=== PATIENT | male | born 1945 | race Two or more races ===

== ENCOUNTER 2018-11-26 09:40 | Emergency (ER) | payer OTHER, MEDICAID ==
[~2018-11-26] VITALS: Ht 167.6 cm; Wt 73.5 kg
[2018-11-26] MEDS ORDERED: SODIUM CHLORIDE 0.9% 1,000 ML IV ONE (10:49)
[2018-11-26] MEDS ORDERED: SODIUM CHLORIDE 0.9% 500 ML IVB ONE (10:49)
[2018-11-26 11:40] LABS: Eosinophils # (auto) 0 uL; Eosinophils % (auto) 0.2 % (0.0-7.0); Hemoglobin 13.6 g/dL (13.5-17.5); Nucleated Red Blood Cells % 0.1 %; White Blood Cell 11.2 10^3/uL (4.4-10.8)
[2018-11-26 11:41] LABS: Basophils # (auto) 0 uL; Basophils % (auto) 0.3 % (0.0-2.0); Hematocrit 40.4 % (41.0-53.0); Lymphocytes # (auto) 0.9 uL; Lymphocytes % (auto) 8.4 % (10.0-50.0); Mean Corpuscular Hemoglobin 33.9 pg (28.0-32.0); Mean Corpuscular Hgb Conc. 33.6 g/dL (32.0-36.0); Mean Corpuscular Volume 100.7 fL (80.0-100.0); Monocytes # (auto) 1.1 uL; Monocytes % (auto) 9.4 % (0.0-12.0); Neutrophils # (auto) 9.2 uL; Neutrophils % (auto) 81.7 % (37.0-80.0); Platelet Count (auto) 143 10^3/uL (140-450); Red Blood Cells 4.01 10^6/uL (4.5-5.90); Red Cell Distribution Width 13.5 % (11.8-14.3)
[2018-11-26 12:00] LABS: Albumin 3.4 g/dL (3.4-5.0); Anion Gap 6 (5-15); Blood Urea Nitrogen 25 mg/dL (7-18); Calcium 8.4 mg/dL (8.5-10.1); Carbon Dioxide 26 mmol/L (21-32); Chloride 106 mmol/L (98-107); Glucose 108 mg/dL (74-106); Potassium 4.4 mmol/L (3.5-5.1); Sodium 138 mmol/L (136-145)
[2018-11-26 12:05] LABS: Alanine Aminotransferase 15 U/L (16-61); Alkaline Phosphatase 52 U/L (45-117); Aspartate Aminotransferase 17 U/L (15-37); BUN/Creatinine Ratio 18.8; Bilirubin, Total 4.3 mg/dL (0.2-1.0); GFR African American 68 mL/min; GFR Non-African American 56 mL/min; Total Protein 7.4 g/dL (6.4-8.2)
[2018-11-26 14:40] VITALS: BP 120/62
[2018-11-26 15:28] LABS: Urine Bacteria NONE SEEN /hpf (None Seen); Urine Blood Negative /uL (Negative); Urine Hyaline Cast FEW /lpf (0 - 2); Urine Specific Gravity 1.011 (1.001-1.035); Urine WBC <1 /hpf (0 - 3)
== END 2018-11-26 16:06 | disposition home or self-care (01) ==
LOC: ER 09:40 → EDBD 09:40 → ER 16:05
DX: R55 Syncope and collapse (principal); T88.1XXA Other complications following immunization, not elsewhere classified, initial encounter; I48.91 Unspecified atrial fibrillation; K21.9 Gastro-esophageal reflux disease without esophagitis; I10 Essential (primary) hypertension
CPT/HCPCS: 36415; 70450; 71046; 80053; 81001; 83735; 84484; 85025; 93005; 94761; 96360; 96361; 99284; J7030; J7040

== ENCOUNTER 2020-03-02 21:01 | Inpatient (IN) | payer OTHER, MEDICAID ==
[~2020-03-02] VITALS: Ht 172.7 cm; Wt 74.6 kg
[2020-03-02 23:03] LABS: Basophils # (auto) 0 10 ^3/uL (0-0.2); Basophils % (auto) 0.4 % (0.0-2.0); Eosinophils # (auto) 0 10 ^3/uL (0-0.8); Hematocrit 46.3 % (41.0-53.0); Hemoglobin 15.7 g/dL (13.5-17.5); Lymphocytes # (auto) 0.8 10 ^3/uL (0.4-5.4); Lymphocytes % (auto) 14.1 % (10.0-50.0); Mean Corpuscular Hemoglobin 34.2 pg (28.0-32.0); Mean Corpuscular Volume 100.8 fL (80.0-100.0); Monocytes # (auto) 0.4 10 ^3/uL (0-1.3); Monocytes % (auto) 6.7 % (0.0-12.0); Neutrophils # (auto) 4.3 10 ^3/uL (1.6-8.6); Neutrophils % (auto) 78.8 % (37.0-80.0); Nucleated Red Blood Cells % 0.1 %; Platelet Count (auto) 135 10^3/uL (140-450); Red Blood Cells 4.59 10^6/uL (4.5-5.90); Red Cell Distribution Width 14.1 % (11.8-14.3); White Blood Cell 5.5 10^3/uL (4.4-10.8)
[2020-03-02 23:26] LABS: Chloride 102 mmol/L (98-107); Potassium 4.6 mmol/L (3.5-5.1); Sodium 132 mmol/L (136-145)
[2020-03-02 23:41] LABS: Alanine Aminotransferase 31 U/L (16-61); Alkaline Phosphatase 46 U/L (45-117); Anion Gap 8 (5-15); Aspartate Aminotransferase 60 U/L (15-37); BUN/Creatinine Ratio 24.8; Bilirubin, Total 1.3 mg/dL (0.2-1.0); Blood Urea Nitrogen 32 mg/dL (7-18); Calcium 7.6 mg/dL (8.5-10.1); Carbon Dioxide 22 mmol/L (21-32); GFR African American 70 mL/min; GFR Non-African American 58 mL/min; Glucose 90 mg/dL (74-106); Magnesium 2.6 mg/dL (1.6-2.6); Total Protein 7.7 g/dL (6.4-8.2)
[2020-03-02 23:49] LABS: Lactic Acid w/Reflex 2.1 mmol/L (0.4-2.0)
[2020-03-03] MEDS ORDERED: SODIUM CHLORIDE 0.9% 1,000 ML IV ONE (00:15)
[2020-03-03] MEDS ORDERED: dilTIAZem 25 MG/5 ML VIAL IV ONE (05:15)
[2020-03-03] MEDS ORDERED: AZITHROMYCIN 500MG/ 250ML 250 ML IV ONE (05:15)
[2020-03-03] MEDS ORDERED: cefTRIAXone 1GM/50ML D5W 50 ML IV ONE (05:30)
[2020-03-03] MEDS ORDERED: ONDANSETRON HCL 4 MG/2 ML VIAL IV PRN (06:30)
[2020-03-03] MEDS ORDERED: ACETAMINOPHEN 325 MG TAB PO PRN (06:30)
[2020-03-03] MEDS ORDERED: MORPHINE SULF INJ 2 MG/ML SYRINGE 1ML IV PRN (06:30)
[2020-03-03] MEDS ORDERED: NITROGLYCERIN 0.4 MG SL TAB SL PRN (06:30)
[2020-03-03] MEDS ORDERED: TEMAZEPAM 15 MG CAP PO PRN (06:30)
[2020-03-03] MEDS ORDERED: levoFLOXacin 500MG 100 ML IV SCH (10:00)
[2020-03-03] MEDS: ATENOLOL 50 MG TAB PO SCH (15:15)
[2020-03-03] MEDS: LOSARTAN POTASSIUM 25 MG TAB PO SCH (15:15)
[2020-03-03] MEDS: FAMOTIDINE 20 MG TAB PO SCH ×2 (15:15→23:50)
[2020-03-03] MEDS: RIVAROXABAN 20 MG TAB PO SCH (15:15)
[2020-03-03] MEDS ORDERED: ATORVASTATIN 20 MG TAB PO SCH (22:00)
[2020-03-03] MEDS: DOXYCYCLINE 100 MG TAB/CAP PO SCH (23:50)
[2020-03-04 05:00] VITALS: BP 126/69
[2020-03-04 05:36] VITALS: BP 126/85
[2020-03-04] MEDS ORDERED: RIV20T PO (05:57)
[2020-03-04] MEDS ORDERED: LOSA-69 PO (05:57)
--- NOTE | 2020-03-04 06:36 | NUR ---
Telemetry admit from ER DELCIDNILES admitted to Telemetry unit after SBAR received. Patient oriented to Alexia Og RN primary RN, unit, room, bed, and unit policies regarding patient care and visiting hours. Patient now on continuous telemetry monitoring, tele box # [id number] and telemetry reading on arrival to unit is Af[facility]. Patient weighed by bedscale and encouraged to call if they need something. All questions and concerns addressed, patient verbalized understanding, will continue to monitor Note: []
[2020-03-04 09:00] VITALS: BP 110/69
[2020-03-04] MEDS: FAMOTIDINE 20 MG TAB PO SCH (09:20)
[2020-03-04] MEDS: ATENOLOL 50 MG TAB PO SCH (09:20)
[2020-03-04] MEDS: DOXYCYCLINE 100 MG TAB/CAP PO SCH (09:20)
[2020-03-04] MEDS: RIVAROXABAN 20 MG TAB PO SCH (09:21)
[2020-03-04] MEDS: LOSARTAN POTASSIUM 25 MG TAB PO SCH (09:21)
[2020-03-04 09:46] LABS: Basophils # (auto) 0 10 ^3/uL (0-0.2); Basophils % (auto) 0.4 % (0.0-2.0); Eosinophils # (auto) 0 10 ^3/uL (0-0.8); Hematocrit 45.7 % (41.0-53.0); Hemoglobin 15.5 g/dL (13.5-17.5); Lymphocytes % (auto) 20.2 % (10.0-50.0); Mean Corpuscular Hemoglobin 33.9 pg (28.0-32.0); Mean Corpuscular Hgb Conc. 33.8 g/dL (32.0-36.0); Mean Corpuscular Volume 100.2 fL (80.0-100.0); Monocytes # (auto) 0.4 10 ^3/uL (0-1.3); Monocytes % (auto) 7.5 % (0.0-12.0); Neutrophils # (auto) 3.6 10 ^3/uL (1.6-8.6); Neutrophils % (auto) 71.9 % (37.0-80.0); Nucleated Red Blood Cells % 0.3 %; Platelet Count (auto) 132 10^3/uL (140-450); Red Blood Cells 4.57 10^6/uL (4.5-5.90); Red Cell Distribution Width 13.9 % (11.8-14.3); White Blood Cell 4.9 10^3/uL (4.4-10.8)
[2020-03-04 10:08] LABS: Albumin 2.8 g/dL (3.4-5.0); Bilirubin, Total 1.2 mg/dL (0.2-1.0); Magnesium 2.7 mg/dL (1.6-2.6); Phosphorus 2.7 mg/dL (2.5-4.90); Total Protein 6.9 g/dL (6.4-8.2)
[2020-03-04 10:15] LABS: Folate (Folic Acid) 15.08 ng/mL (5.38-24)
--- NOTE | 2020-03-04 12:11 | NUR ---
DR AGUDELO ROUNDED. PER PT, DR Spencer BROOKS IS HIS ACQUISITION ASSOCIATE. CONSULT PLACED. DR Melinda BROOKS NOTIFIED OF CONSULT PER DR AGUDELO. EKG COMPLETE. PT DAUGHTER JG UPDATED VIA TELEPHONE. WILL CONTINUE TO MONITOR.
[2020-03-04] MEDS ORDERED: ATE50T PO (12:48)
[2020-03-04] MEDS ORDERED: DOX100T PO (12:48)
[2020-03-04] MEDS ORDERED: LOS25T PO (12:48)
[2020-03-04] MEDS ORDERED: ALBUAER3 IN (12:50)
[2020-03-04 15:38] VITALS: BP 110/69
--- NOTE | 2020-03-04 16:44 | NUR ---
PT DAUGHTER JG NOTIFIED THAT PT WILL BE DISCHARGED TODAY.
--- NOTE | 2020-03-04 17:04 | NUR ---
PT DAUGHTER JG PICKED UP MEDS AT [facility]. DISCHARGE INSTRUCTIONS GIVEN TO JG. ALL APPROPRIATE PAPERWORK SIGNED. IV AND TELE BOX REMOVED. PT DISCHARGED HOME WITH DAUGHTER.
== END 2020-03-04 17:05 | disposition home or self-care (01) | DRG 308 ==
LOC: EDBD 21:01 → ER 21:06 → TELE 21:07 → TELE-CENTR 03-04 05:09
PROVIDERS: ADMIT Nurse Practitioner; ATTEND Internal Medicine
DX: I48.91 Unspecified atrial fibrillation (principal); J18.9 Pneumonia, unspecified organism; R55 Syncope and collapse; I10 Essential (primary) hypertension; Z20.828 Contact with and (suspected) exposure to other viral communicable diseases; Z79.01 Long term (current) use of anticoagulants; Z82.49 Family history of ischemic heart disease and other diseases of the circulatory system; J20.9 Acute bronchitis, unspecified
CPT/HCPCS: 36415; 70450; 71045; 80053; 82607; 82746; 83036; 83605; 83735; 83880; 84100; 84484; 85025; 85379; 87040; 87426; 87804; 93005; 93306; 93886; 96360; G0378; J0696; J1956

== ENCOUNTER 2021-12-19 15:15 | Inpatient (IN) | payer OTHER ==
[~2021-12-19] VITALS: Ht 152.4 cm; Wt 73.5 kg
[~2021-12-19 15:15] MED LIST: ALBUAER3 IN; ATE50T PO; DOX100T PO; LOS25T PO; RIV20T PO
[2021-12-19] MEDS: ONDANSETRON HCL 4 MG/2 ML VIAL IV ONE ×2 (15:30→16:20)
[2021-12-19] MEDS ORDERED: SODIUM CHLORIDE 0.9% 1,000 ML IV ONE (15:30)
[2021-12-19 16:10] LABS: Basophils # (auto) 0 10 ^3/uL (0-0.2); Basophils % (auto) 0.3 % (0.0-2.0); Eosinophils # (auto) 0 10 ^3/uL (0-0.8); Eosinophils % (auto) 0.2 % (0.0-7.0); Hematocrit 45.2 % (41.0-53.0); Hemoglobin 15.1 g/dL (13.5-17.5); Lymphocytes # (auto) 1.9 10 ^3/uL (0.4-5.4); Lymphocytes % (auto) 11.7 % (10.0-50.0); Mean Corpuscular Hemoglobin 33.2 pg (28.0-32.0); Mean Corpuscular Hgb Conc. 33.3 g/dL (32.0-36.0); Mean Corpuscular Volume 99.7 fL (80.0-100.0); Monocytes # (auto) 0.9 10 ^3/uL (0-1.3); Monocytes % (auto) 5.5 % (0.0-12.0); Neutrophils # (auto) 13.1 10 ^3/uL (1.6-8.6); Neutrophils % (auto) 82.3 % (37.0-80.0); Nucleated Red Blood Cells % 0.1 %; Red Blood Cells 4.54 10^6/uL (4.5-5.90); Red Cell Distribution Width 13.5 % (11.8-14.3); White Blood Cell 15.9 10^3/uL (4.4-10.8)
[2021-12-19 16:26] LABS: Anion Gap 9 (5-15); Calcium 8.4 mg/dL (8.5-10.1); Carbon Dioxide 26 mmol/L (21-32); Chloride 106 mmol/L (98-107); Glucose 141 mg/dL (74-106); Magnesium 2.1 mg/dL (1.6-2.6); Potassium 4.5 mmol/L (3.5-5.1); Sodium 141 mmol/L (136-145)
[2021-12-19 16:30] LABS: Alanine Aminotransferase 53 U/L (16-61); Aspartate Aminotransferase 68 U/L (15-37); Bilirubin, Total 2.8 mg/dL (0.2-1.0); GFR African American 72 mL/min; GFR Non-African American 59 mL/min; Lactic Acid w/Reflex 2.6 mmol/L (0.4-2.0); Total Protein 7.7 g/dL (6.4-8.2)
[2021-12-19 16:35] LABS: Alkaline Phosphatase 69 U/L (45-117)
[2021-12-19] MEDS ORDERED: fentaNYL CITRATE 100 MCG/2 ML VL IV ONE (16:45)
[2021-12-19] MEDS ORDERED: PIPERACILLIN-TAZOB 3.375GM 100 ML IV ONE (16:45)
[2021-12-19 16:52] LABS: Lipase > 30000 U/L (73-393)
[2021-12-19 16:57] LABS: BUN/Creatinine Ratio 19.8; Blood Urea Nitrogen 25 mg/dL (7-18)
[2021-12-19 17:39] LABS: Urine Bacteria FEW /hpf (None Seen); Urine Blood Negative /uL (Negative); Urine Hyaline Cast FEW /lpf (0 - 2); Urine Mucus FEW (None Seen); Urine WBC 5 /hpf (0 - 3)
[2021-12-19] MEDS ORDERED: ONDANSETRON HCL 4 MG/2 ML VIAL IV PRN (22:30)
[2021-12-19] MEDS ORDERED: SOD CHL 0.45% 1,000 ML IV SCH (22:30)
[2021-12-19] MEDS ORDERED: DEXTROSE (50%) 50ML SYRG IV PRN (22:30)
[2021-12-19] MEDS ORDERED: MORPHINE SULFATE INJ 2 MG/ml SYRG IV PRN ×2 (22:30→22:45)
[2021-12-19] MEDS ORDERED: IBUPROFEN 400 MG TAB PO PRN (22:30)
[2021-12-19] MEDS ORDERED: NITROGLYCERIN 0.4 MG SL TAB SL PRN (22:45)
[2021-12-20] MEDS: metroNIDAZOLE 500MG/100ML 100 ML IV SCH ×4 (00:05→23:08)
[2021-12-20 00:28] VITALS: BP 141/64
[2021-12-20 05:00] VITALS: BP 132/76
[2021-12-20] MEDS: PIPERACILLIN-TAZOB 3.375GM 100 ML IV SCH ×3 (05:47→23:17)
[2021-12-20] MEDS: ACCU-CHEK COMFORT CURVE STRIP VI SCH ×4 (05:51→23:25)
[2021-12-20] MEDS: InsuLIN REG 1unit/0.01ml Soln (100units/ml) SC SCH ×4 (05:52→22:00)
[2021-12-20 06:14] LABS: Basophils # (auto) 0 10 ^3/uL (0-0.2); Basophils % (auto) 0.3 % (0.0-2.0); Eosinophils # (auto) 0 10 ^3/uL (0-0.8); Eosinophils % (auto) 0.3 % (0.0-7.0); Hematocrit 43.8 % (41.0-53.0); Hemoglobin 14.9 g/dL (13.5-17.5); Lymphocytes # (auto) 1.3 10 ^3/uL (0.4-5.4); Lymphocytes % (auto) 12.2 % (10.0-50.0); Mean Corpuscular Hemoglobin 33.5 pg (28.0-32.0); Mean Corpuscular Hgb Conc. 34.1 g/dL (32.0-36.0); Mean Corpuscular Volume 98.1 fL (80.0-100.0); Monocytes # (auto) 0.7 10 ^3/uL (0-1.3); Monocytes % (auto) 6.3 % (0.0-12.0); Neutrophils # (auto) 8.8 10 ^3/uL (1.6-8.6); Neutrophils % (auto) 80.9 % (37.0-80.0); Nucleated Red Blood Cells % 0.1 %; Red Blood Cells 4.47 10^6/uL (4.5-5.90); White Blood Cell 10.9 10^3/uL (4.4-10.8)
[2021-12-20 06:30] LABS: Potassium 4.3 mmol/L (3.5-5.1)
[2021-12-20 06:38] LABS: Albumin 3.2 g/dL (3.4-5.0); BUN/Creatinine Ratio 27.2; Bilirubin, Total 2.6 mg/dL (0.2-1.0); Total Protein 6.1 g/dL (6.4-8.2)
[2021-12-20 09:00] VITALS: BP 134/80
[2021-12-20] MEDS: FAMOTIDINE (10MG/ML) 2ML VL IV SCH ×2 (09:31→23:09)
[2021-12-20] MEDS ORDERED: LOSARTAN POTASSIUM 25 MG TAB PO ONE (12:15)
[2021-12-20] MEDS: SODIUM CHLORIDE 0.9% 1,000 ML IV SCH ×2 (12:52→20:30)
[2021-12-20 13:00] VITALS: BP 129/78
[2021-12-20 17:00] VITALS: BP 133/73
[2021-12-20] MEDS: RIVAROXABAN 20 MG TAB PO SCH (18:13)
[2021-12-20 22:00] VITALS: BP 126/73
[2021-12-21] MEDS: SODIUM CHLORIDE 0.9% 1,000 ML IV SCH ×3 (04:27→20:57)
[2021-12-21 05:00] VITALS: BP 129/74
[2021-12-21] MEDS: PIPERACILLIN-TAZOB 3.375GM 100 ML IV SCH ×3 (05:37→21:32)
[2021-12-21] MEDS: metroNIDAZOLE 500MG/100ML 100 ML IV SCH (05:37)
[2021-12-21] MEDS: ACCU-CHEK COMFORT CURVE STRIP VI SCH (06:28)
[2021-12-21] MEDS: InsuLIN REG 1unit/0.01ml Soln (100units/ml) SC SCH (06:44)
[2021-12-21 09:00] VITALS: BP 139/77
[2021-12-21] MEDS: LOSARTAN POTASSIUM 25 MG TAB PO SCH (10:27)
[2021-12-21] MEDS: FAMOTIDINE (10MG/ML) 2ML VL IV SCH (10:27)
[2021-12-21 13:00] VITALS: BP 117/66
[2021-12-21 17:00] VITALS: BP 138/71
[2021-12-21] MEDS: RIVAROXABAN 20 MG TAB PO SCH (18:17)
[2021-12-21 22:00] VITALS: BP 127/72
[2021-12-22] MEDS: SODIUM CHLORIDE 0.9% 1,000 ML IV SCH (04:30)
[2021-12-22 05:00] VITALS: BP 116/72
[2021-12-22] MEDS: PIPERACILLIN-TAZOB 3.375GM 100 ML IV SCH (05:58)
[2021-12-22] MEDS: LOSARTAN POTASSIUM 25 MG TAB PO SCH (08:55)
[2021-12-22] MEDS ORDERED: PANTOPRAZOLE 40 MG TAB PO SCH (10:00)
[2021-12-22] MEDS ORDERED: PANT40T PO (10:30)
[2021-12-22] MEDS ORDERED: METR500T PO (10:30)
[2021-12-22 10:57] VITALS: BP 119/68
== END 2021-12-22 12:06 | disposition home or self-care (01) | DRG 439 ==
LOC: EDBD 15:15 → ER 15:17 → OVERFLOW 22:43 → EAST 23:20
PROVIDERS: ADMIT Nurse Practitioner Family; ATTEND Family Medicine
DX: K85.90 Acute pancreatitis without necrosis or infection, unspecified (principal); N39.0 Urinary tract infection, site not specified; R65.10 Systemic inflammatory response syndrome (SIRS) of non-infectious origin without acute organ dysfunction; R55 Syncope and collapse; R73.9 Hyperglycemia, unspecified; Z20.822 Contact with and (suspected) exposure to COVID-19; E86.0 Dehydration; I10 Essential (primary) hypertension; I48.91 Unspecified atrial fibrillation; K80.20 Calculus of gallbladder without cholecystitis without obstruction; K21.9 Gastro-esophageal reflux disease without esophagitis; Z79.01 Long term (current) use of anticoagulants; Z82.49 Family history of ischemic heart disease and other diseases of the circulatory system
CPT/HCPCS: 36415; 71045; 74176; 76705; 80053; 81001; 82962; 83605; 83690; 83735; 84484; 85025; 87040; 93005; 96361; 96365; 96375; 99291; G0378; J2405; J2543; J3490